=== PATIENT | female | born 1975 ===

== ENCOUNTER 2025-01-17 11:42 | Emergency (ER) | payer OTHER, SELFPAY ==
[2025-01-17] VITALS (18 sets, daily range): BP systolic 117–182; BP diastolic 84–112; PULSE 63–86; RESP 18; TEMP 36.3; O2SAT 89–99; BMI 44.6
[2025-01-17] MEDS: ONDANSETRON 4 MG/2 ML INJ IV ×2 (12:28→18:12)
[2025-01-17] MEDS: SODIUM CHLORIDE 0.9% 1,000 ML 1000 ML IV (12:29)
--- NOTE | 2025-01-17 12:31 | DI.CT.S_ITS ---
PROCEDURE: CT ABDOMEN PELVIS WO CON INDICATIONS: L flank pain, abd pain, nephrostomy on Right , hx hernia,v/janna TECHNIQUE: CT of the abdomen and pelvis was obtained without intravenous contrast. Coronal and sagittal reformats were performed. For radiation dose reduction, the following was used: automated exposure control, adjustment of mA and/or kV according to patient size. COMPARISON: None. FINDINGS: Image quality: Diagnostic. Lower Chest: No significant findings. ABDOMEN: Liver: No contour-deforming mass. Gallbladder: Multiple gallstones are present. No pericholecystic inflammatory changes. Biliary ducts: No biliary dilation. Pancreas: No ductal dilation. Spleen: Size is within normal limits. Adrenal Glands: No adrenal nodules. Kidneys and Ureters: Right percutaneous nephrostomy tube is present. No significant right hydronephrosis. Severe chronic left renal atrophy and severe left hydroureteronephrosis to the level of the pelvic inlet. No contour-deforming mass. Stomach and Bowel: Multiple diverticula in the colon without signs of acute diverticulitis. Mildly dilated fluid-filled loops of small bowel in the central abdomen with proximal and distal transition points at the level of the mouth of a large ventral hernia. Associated mesenteric edema is seen. Peritoneum: Small amount of free fluid is seen in the pelvis. No free air. Ventral Wall: Large not ventral hernia contains fat and loops of small bowel. Abdominal Nodes: No retroperitoneal or mesenteric adenopathy by size criteria. Vessels: Aorta and inferior vena cava are normal in size. PELVIS: Pelvic Organs: Unremarkable. Bladder: Bladder wall thickening may be related to underdistention or cystitis. Pelvic Nodes: No enlarged lymph nodes. Miscellaneous: No inguinal hernias are seen. Bones: No aggressive osseous abnormality. IMPRESSION: 1. Large ventral hernia containing fat and loops of small bowel. A few borderline dilated loops of small bowel are seen with proximal and distal transition points at the level of the hernia mouth and mild mesenteric edema, suspicious for closed-loop obstruction. 2. Chronic severe left renal atrophy the an severe left hydroureteronephrosis. Right percutaneous nephrostomy tube is present without significant right hydronephrosis. 3. Mild bladder wall thickening may be secondary to underdistention or cystitis. 4. Small volume of free fluid in the pelvis. 5. Colonic diverticulosis without acute diverticulitis. 6. Cholelithiasis. Findings were discussed with the referring provider, Dr. Turcios, by telephone on 01/17/2025 at 2:04 PM. Approved by: Jonn Ward M.D. on 01/17/2025 at 14:05
--- NOTE | 2025-01-17 12:34 | ED_ITS ---
HPI - Abdominal Pain General Chief Complaint: Abdominal Pain Stated Complaint: Throwing up& Pain -Chronic kidney & Hernia Time Seen by Provider: 01/17/25 11:52 Source: patient, RN notes reviewed and old records reviewed Mode of arrival: Wheelchair Limitations: no limitations History of Present Illness HPI narrative: 49-year-old female history of hypertension, single working kidney with nephrostomy on the right, patient presents with complaint of sudden onset of lower abdominal pain she describes as left-sided abdominal pain but does radiate over to the right she also notes flank pain. She denies fevers or chills. She has had nausea and vomiting. States she has not had any chest pain or shortness of breath. No syncope. She had little bit of diarrhea today no black or bloody stools. No new dysuria, urgency or frequency that she appreciated she has not appreciate any sediment or changes to her urine other than being a little bit darker. She has not noticed that her nephrostomy has been blocked or had any issues with draining it has been present for 7 years. She states she is on medications for hypertension, denies any dyslipidemia, diabetes or anticoagulants. She states she has had the prior nephrostomy, radical hysterectomy and appendectomy. Allergic to sulfa states she can not take NSAIDs secondary to her renal function. No tobacco, alcohol or recreational drugs. Her nephrostomy was placed at [facility]. Related Data Allergies Allergy/AdvReac Type Severity Reaction Status Date / Time No Known Allergies Allergy Verified 01/17/25 11:59 Review of Systems Review of Systems ROS Unobtainable: All systems reviewed & are unremarkable except as noted in HPI and below Patient History Social History Smoking Status: Never smoker Smoking Status: Never smoker Exam Narrative Exam Narrative: GENERAL: Alert and oriented x three, obese female in moderate distress HEENT: Head normocephalic, atraumatic, EOMI, pupils reactive, face symmetric, moist mucous membranes NECK: Supple, full range of motion CARDIOVASCULAR: Regular rate and rhythm without murmurs, rubs or gallops. RESPIRATORY: Breath sounds equal bilaterally, no wheezes rales or rhonchi. ABDOMEN: Soft, positive tenderness generalized, patient somewhat distended. Normoactive bowel sounds all 4 quadrants. No guarding or rebound, rigidity, no mass : No CVA tenderness, patient has nephrostomy on the right appears intact appears to be draining yellow urine EXTREMITIES: Normal range of motion, no clubbing or edema. Neurovascularly intact NEUROLOGICAL: Cranial nerves II through XII grossly intact. Moving all extremities SKIN: Warm, dry, no petechiae, no rashes or lesions. Initial Vital Signs Initial Vital Signs: Vital Signs Temperature 97.4 F L 01/17/25 12:12 Pulse Rate 72 01/17/25 12:12 Respiratory Rate 18 01/17/25 12:12 Blood Pressure 117/85 01/17/25 12:12 Pulse Oximetry 99 01/17/25 12:12 Oxygen Delivery Method Room Air 01/17/25 12:12 Course Orders Ordered: ED Orders 01/17/25 12:30 CBC Auto Diff [Complete Blood Count AUTO DIFF] Stat CMP [Comprehensive Metabolic Panel] Stat Lactate (Lactic Acid) Stat Lipase Stat 01/17/25 12:31 CT abdomen pelvis wo con Stat 01/17/25 12:38 EKG-12 Lead Stat 01/17/25 14:54 EKG-12 Lead Stat 01/17/25 14:55 UA Complete [Urinalysis and Microscopic] Stat Urine Culture Stat Sodium Chloride (Normal Saline 0.9%) 1,000 mls @ 100 mls/hr IV CONT SATURNINO Last Admin: 01/17/25 16:27 Dose: 100 mls/hr Documented By: CTS Discontinued Medications Hydromorphone HCl (Hydromorphone Hcl 0.5 Mg/0.5 Ml Syringe) 0.5 mg IV NOW ONE Stop: 01/17/25 12:27 Last Admin: 01/17/25 12:42 Dose: 0.5 mg Documented By: INNA Hydromorphone HCl (Hydromorphone 1 Mg/Ml Syringe) 1 mg IV NOW ONE Stop: 01/17/25 14:37 Last Admin: 01/17/25 14:40 Dose: 0.5 mg Documented By: MECCA Hydromorphone HCl (Hydromorphone Hcl 0.5 Mg/0.5 Ml Syringe) 0.5 mg IV NOW ONE Stop: 01/17/25 16:43 Last Admin: 01/17/25 16:48 Dose: 0.5 mg Documented By: MECCA Hydromorphone HCl (Hydromorphone Hcl 0.5 Mg/0.5 Ml Syringe) 0.5 mg IV NOW ONE Stop: 01/17/25 19:08 Last Admin: 01/17/25 19:09 Dose: 0.5 mg Sodium Chloride (Normal Saline 0.9%) 1,000 mls @ 1,000 mls/hr IV BOLUS ONE Stop: 01/17/25 13:05 Last Infusion: 01/17/25 13:41 Dose: Infused Documented By: Admin: 01/17/25 12:29 Dose: 1,000 mls/hr Documented By: TRAN Ceftriaxone Sodium 1,000 mg/ (Sodium Chloride) 100 mls @ 200 mls/hr IV NOW ONE Stop: 01/17/25 15:36 Last Infusion: 01/17/25 17:56 Dose: Infused Documented By: Admin: 01/17/25 16:26 Dose: 200 mls/hr Documented By: IRWIN Ketorolac Tromethamine (Ketorolac 30 Mg/Ml Vial) 15 mg IV NOW ONE Stop: 01/17/25 12:07 Last Admin: 01/17/25 13:44 Dose: Not Given Documented By: IRWIN Lorazepam (Lorazepam 2 Mg/Ml Inj) 0.5 mg IV NOW ONE Stop: 01/17/25 18:28 Last Admin: 01/17/25 18:33 Dose: 0.5 mg Ondansetron HCl (Ondansetron 4 Mg/2 Ml Inj) 4 mg IV NOW ONE Stop: 01/17/25 12:07 Last Admin: 01/17/25 12:28 Dose: 4 mg Documented By: TRAN Ondansetron HCl (Ondansetron 4 Mg/2 Ml Inj) 4 mg IV NOW PRN PRN Reason: Nausea And Vomiting Ondansetron HCl (Ondansetron 4 Mg Odt) 4 mg PO NOW PRN PRN Reason: Nausea And Vomiting Ondansetron HCl (Ondansetron 4 Mg/2 Ml Inj) 4 mg IV NOW ONE Stop: 01/17/25 18:10 Last Admin: 01/17/25 18:12 Dose: 4 mg Documented By: MECCA Vital Signs Vital signs: Vital Signs - 8 hr 01/17/25 12:12 01/17/25 13:07 01/17/25 13:10 Temperature 97.4 F L Pulse Rate 72 76 79 Respiratory Rate 18 Blood Pressure 117/85 Pulse Oximetry 99 90 L 95 Oxygen Delivery Method Room Air Oxygen Flow Rate 01/17/25 13:10 01/17/25 13:30 01/17/25 14:00 Temperature Pulse Rate 75 63 Respiratory Rate Blood Pressure 169/94 H Pulse Oximetry 89 L 97 Oxygen Delivery Method Nasal Cannula Oxygen Flow Rate 2 01/17/25 14:02 01/17/25 14:02 01/17/25 14:30 Temperature Pulse Rate 75 Respiratory Rate Blood Pressure 162/109 H 155/101 H Pulse Oximetry 98 Oxygen Delivery Method Nasal Cannula Oxygen Flow Rate 1 01/17/25 14:30 01/17/25 15:00 01/17/25 15:00 Temperature Pulse Rate 73 64 Respiratory Rate Blood Pressure 165/107 H Pulse Oximetry 97 97 Oxygen Delivery Method Oxygen Flow Rate 01/17/25 15:30 01/17/25 15:30 01/17/25 16:00 Temperature Pulse Rate 66 Respiratory Rate Blood Pressure 163/99 H 139/89 Pulse Oximetry 97 Oxygen Delivery Method Oxygen Flow Rate 01/17/25 16:00 01/17/25 16:33 01/17/25 16:34 Temperature Pulse Rate 74 67 Respiratory Rate Blood Pressure 182/105 H Pulse Oximetry 95 96 Oxygen Delivery Method Oxygen Flow Rate 01/17/25 16:34 01/17/25 17:00 01/17/25 17:01 Temperature Pulse Rate 67 86 Respiratory Rate Blood Pressure 165/102 H Pulse Oximetry 97 95 Oxygen Delivery Method Oxygen Flow Rate 01/17/25 17:01 01/17/25 17:30 01/17/25 17:30 Temperature Pulse Rate 77 75 Respiratory Rate Blood Pressure 168/112 H Pulse Oximetry 94 95 Oxygen Delivery Method Oxygen Flow Rate 01/17/25 18:00 01/17/25 18:00 01/17/25 18:30 Temperature Pulse Rate 72 79 Respiratory Rate Blood Pressure 162/84 H Pulse Oximetry 97 94 Oxygen Delivery Method Oxygen Flow Rate 01/17/25 18:31 01/17/25 18:31 Temperature Pulse Rate 83 Respiratory Rate Blood Pressure 168/88 H Pulse Oximetry 95 Oxygen Delivery Method Oxygen Flow Rate MDM - Abdominal Pain Lab Data 01/17/25 12:30 01/17/25 12:30 Labs: Lab Results 01/17/25 01/17/25 Range/Units 12:30 14:55 WBC 11.1 H (4.5-11.0) X10^3/uL RBC 4.61 (4.0-5.2) X10^6/uL Hgb 12.9 (12.0-16.0) g/dL Hct 39.7 (36-46) % MCV 86.2 (80-100) fL MCH 28.0 (26-34) PG MCHC 32.5 (30-36) % RDW 14.1 (11.6-14.8) % Plt Count 416 H (150-400) X10^3/uL Neut % (Auto) 63.3 (50-75) % Lymph % (Auto) 22.5 L (25-40) % Casey % (Auto) 6.1 (3-14) % Eos % (Auto) 7.0 H (2-4) % Baso % (Auto) 1.1 (0-2) % Neut # (Auto) 7000 (6469-3902) /uL Lymph # (Auto) 2500 (0799-8041) /uL Casey # (Auto) 700 (0-900) /uL Eos # (Auto) 800 H (0-450) /uL Baso # (Auto) 100 (0-100) /uL Sodium 140 (137-145) mmol/L Potassium 5.0 (3.4-5.1) mmol/L Chloride 110 H (98-107) mmol/L Carbon Dioxide 19 L (22-32) mmol/L BUN 35 H (7-17) mg/dL Creatinine 3.81 H (0.52-1.04) mg/dL Estimated GFR 14 L (>60) mL/min BUN/Creatinine Ratio 9.2 (6-22) Glucose 121 H (70-99) mg/dL Lactate 1.2 (0.7-2.1) mmol/L Calcium 9.5 (8.4-10.2) mg/dL Total Bilirubin 0.5 (0.2-1.3) mg/dL AST 33 (14-36) IU/L ALT 20 (<35) IU/L Alkaline Phosphatase 129 H (38-126) U/L Total Protein 9.0 H (6.3-8.2) g/dL Albumin 4.6 (3.5-5.0) g/dL Globulin 4.4 H (1.7-4.1) g/dL Albumin/Globulin Ratio 1.0 (1.0-2.8) Lipase 148 (23-300) U/L Urine Color Yellow Urine Appearance Clear Urine pH 7.5 (4.5-8.0) Ur Specific [place] 1.015 (1.000-1.035) Urine Protein 3+ H (Negative) Urine Glucose (UA) Negative (Negative) g/dL Urine Ketones Negative (NEGATIVE) Urine Occult Blood 3+ H (Negative) Urine Nitrate Negative (Negative) Urine Bilirubin Negative (NEGATIVE) Urine Urobilinogen 0.2 (0.2) E.U./dL Ur Leukocyte Esterase 1+ H (NEGATIVE) Urine RBC 5-10/hpf H (0-5/HPF) Urine WBC 10-30/hpf H (0-5/HPF) Ur Squamous Epith Cells 0-1 /hpf (0-5/HPF) Urine Bacteria Few (2-10) H (None) Ur Culture Indicated? Specimen cultured Vol Urine Centrifuged 10ml (spun) MDM Narrative Medical decision making narrative: Labs, white count of 11, hemoglobin 12.9 platelets of 416. Patient's creatinine is 3.8 BUN 35 CO2 is 19 chloride 110, sodium potassium are appropriate glucose is 121. Alk-phos is 129 total protein 9 with a globulin of 4.5 Urine shows 3+ protein 3+ blood 1+ leuks 5-10 RBCs 10-30 WBCs 1 squamous few bacteria was sent for culture Lactate was sent. Lactate 1.2 EKG 1. Sinus rhythm rate of 65 CO 172 QRS 82 QTC 434, no acute ST-elevation depression appreciated. EKG 2. Normal sinus rhythm rate of 74 CO 174 QRS 82 QTC of 477, no acute ST- elevation depression appreciated. CT abdomen and pelvis, large ventral hernia containing about loops of small bowel few borderline loops of small bowel seen proximal distal transition points at level of hernia mouth a mild mesenteric edema suspicious for close obstruction. Chronic left renal atrophy with severe left hydroureteronephrosis right percutaneous nephrostomy tube present without significant right hydro, mild bladder wall thickening maybe secondary to underdistention or cystitis. Small volume free fluid in the pelvis. Colonic diverticulosis without diverticulitis. Cholelithiasis. Patient received fluids, multiple doses of pain medication and antiemetics. Patient is started on IV antibiotics for potential infection as well with her urinalysis. Discussed findings with the patient she requested possible to be transferred [facility] where she has had her care in the past. Spoke with Dr. Canales, general surgery at [facility] discussed patient's findings today her medical history single functional kidney with a percutaneous nephrostomy tube present because of her medical history she feels patient would benefit from being transferred for her care. Spoke with nephrology for case getting a through [facility], patient follows with the group discussed we will potentially require surgical intervention they are happy to follow along as needed. Spoke with [facility], they reviewed. Agree with the plan for transfer they will talk to [facility] but also ask if we can push images to [facility]. They are aware of patient's preference and history of care at [facility]. E-pro physician from [facility]. Asked if surgery is willing to take patient to OR with plan for transfer afterwards. Dr[id number] she does not believe she has not acute closed loop bowel obstruction but does feel patient we would likely benefit from surgical repair of her hernia in the short term. She saw patient here in the department,feels patient is stable enough for transfer and then surgery afterwards. Spoke with E-pro [facility] physician who states Dr. Rodriguez general surgery accepts at [facility] for transfer they asked for ED to ED transfer. Dr Singh, ED physician at [facility] accepts for transfer ED to ED. Spoke with the patient updated her about plan for transfer to [facility] at this time there were not beds available yet [facility]. She is agreeable to transfer. Discharge Plan Departure Patient Disposition: [facility] Clinical Impression: Small bowel obstruction, Single functional kidney, H/O insertion of nephrostomy tube
--- NOTE | 2025-01-17 12:38 | EKG_ITS ---
[address] [address] Test Date: 2025-01-17 Pat Name: Monica Waters Department: [facility] Room: Gender: Female Corporate Legal Intern: GELY : 1975 Requested By: Order Number: [id number] Reading MD: Damon Mckeon MD Measurements Intervals Laura Rate: 65 P: 37 AK: 172 QRS: -19 QRSD: 82 T: 6 QT: 418 QTc: 434 Interpretive Statements Normal sinus rhythm Electronically Signed On 01-17-2025 17:18:43 PST by Damon Mckeon MD
[2025-01-17 12:51] LABS: Add Manual Diff / Slide Review NO; Hematocrit 39.7 % (36-46); Hemoglobin 12.9 g/dL (12.0-16.0); Lymphocytes Absolute Auto 2500 /uL (1100-4500); Mean Corpuscular HGB Conc 32.5 % (30-36); Mean Corpuscular Hemoglobin 28.0 PG (26-34); Mean Corpuscular Volume 86.2 fL (80-100); Platelet Count 416 X10^3/uL (150-400)
[2025-01-17 12:59] LABS: Alanine Aminotransferase 20 IU/L (<35); Albumin 4.6 g/dL (3.5-5.0); Albumin Globulin Ratio 1.0 (1.0-2.8); Alkaline Phosphatase 129 U/L (38-126); Blood Urea Nitrogen 35 mg/dL (7-17); Calcium 9.5 mg/dL (8.4-10.2); Carbon Dioxide 19 mmol/L (22-32); Chloride 110 mmol/L (98-107); Estimated Glomerular Filt Rate 14 mL/min (>60); Globulin 4.4 g/dL (1.7-4.1); Glucose 121 mg/dL (70-99); HEMOLYSIS 35 (0-50); Lipase 148 U/L (23-300); Potassium 5.0 mmol/L (3.4-5.1); Sodium 140 mmol/L (137-145); Total Protein 9.0 g/dL (6.3-8.2)
--- NOTE | 2025-01-17 13:59 | PC.NURSE ---
Placed on for oxygen at 88% on RA.
--- NOTE | 2025-01-17 14:32 | PC.NURSE ---
patient in the room resting has pain in her abd again. provider updated
--- NOTE | 2025-01-17 14:54 | EKG_ITS ---
[place] [id number] [place] [address] Test Date: 2025-01-17 Pat Name: Monica Waters Department: Room: Gender: Female Publication Specialist: : 1975 Requested By: Order Number: [id number] Reading MD: Damon Mckeon MD Measurements Intervals Josephine Rate: 74 P: 32 AR: 174 QRS: -16 QRSD: 82 T: 2 QT: 430 QTc: 477 Interpretive Statements Normal sinus rhythm Electronically Signed On 01-18-2025 7:26:00 PST by Damon Mckeon MD
[2025-01-17 15:17] LABS: Appearance Urine UA CLEAR; Bilirubin Urine UA NEGATIVE (NEGATIVE); Color Urine UA YELLOW; Glucose Urine UA NEGATIVE (Negative); Ketones Urine UA NEGATIVE (NEGATIVE); Leukocyte Esterase Urine UA 1+ (NEGATIVE); Nitrite Urine UA NEGATIVE (Negative); Occult Blood Urine UA 3+ (Negative); Protein Urine UA 3+ (Negative); Specific Gravity Urine UA 1.015 (1.000-1.035); Urobilinogen Urine UA 0.2 E.U./dL (0.2)
[2025-01-17 15:30] LABS: pH Urine UA 7.5 (4.5-8.0)
[2025-01-17 15:34] LABS: Culture Indicated Urine Specimen Cultured
[2025-01-17 15:45] LABS: Lactate (Lactic Acid) 1.2 mmol/L (0.7-2.1)
[2025-01-17] MEDS: SODIUM CHLORIDE 0.9% 1,000 ML 100 ML IV (16:27)
== END 2025-01-17 19:30 | disposition short-term general hospital (02) ==
PROVIDERS: Emergency Provider Emergency Medicine
DX: K56.609 Unspecified intestinal obstruction, unspecified as to partial versus complete obstruction (principal); Z90.5 Acquired absence of kidney; Z93.6 Other artificial openings of urinary tract status
CPT/HCPCS: 36415; 74176; 80053; 81001; 83605; 83690; 85025; 87077; 87086; 87186; 93005; 96361; 96365; 96375; 96376; 99284; 99285; J0696; J1171; J2060; J2405; J7030; J7050